=== PATIENT | female | born 1985 ===

== ENCOUNTER 2017-07-14 07:33 | Inpatient (IN) | payer BC ==
[2017-07-14 08:59] LABS: RBC URINE 2 /hpf (0-3); URINE BACTERIA OCC (<OCC); URINE BILIRUBIN NEGATIVE (NEGATIVE); URINE BLOOD NEGATIVE (NEGATIVE); URINE COLOR YELLOW (YELLOW); URINE GLUCOSE (UA) NEG (Normal); URINE KETONE 20 mg/dL (NEGATIVE); URINE LEUKOCYTE ESTERASE LARGE Leu/uL (Negative); URINE PROTEIN NEGATIVE (NEGATIVE); URINE UROBILINOGEN 0.2-1.0 mg/dL (0.2-1.0); WBC URINE 4 /hpf (0-5)
[2017-07-14] MEDS ORDERED: Lactated Ringer's 1,000 ML IV SCH (09:30)
[2017-07-14 10:23] LABS: HEMATOCRIT 27.3 % (34.0-47.0); MEAN CELL VOLUME 93.2 fl (81.0-99.0); MEAN CORPUSCULAR HGB CONC 35.5 g/dL (33.0-37.0)
[2017-07-14 10:34] LABS: ALB/GLOB RATIO 1.1 (1.0-2.1); ALKALINE PHOSPHATASE 100 U/L (38-126); ALT/SGPT 28 U/L (9-52); AST/SGOT 29 U/L (14-36); BILIRUBIN,TOTAL 0.7 mg/dl (0.2-1.3); BLOOD UREA NITROGEN 3 mg/dl (7-17); CALCIUM 8.4 mg/dL (8.4-10.2); CARBON DIOXIDE 22 mmol/L (22-30); CHLORIDE 106 mmol/L (98-107); GFR AFRICAN-AMERICAN > 60; GLUCOSE,RANDOM 74 mg/dL (65-105); SODIUM 136 mmol/l (132-148); TOTAL PROTEIN 5.4 G/DL (6.3-8.2)
[2017-07-14 11:15] LABS: POTASSIUM 2.5 MMOL/L (3.6-5.0)
[2017-07-14] MEDS ORDERED: Potassium Chloride 20 mEq ER Tab PO ONE (11:37)
--- NOTE | 2017-07-14 12:07 | OBHP ---
Datetime: 07/14/2017 08:20 IP Adm Impression: , intrauterine IP Admit Plan: Observation/Evaluation Admit Comment, IP Provider: OB Hospitalist Addendum: Pt seen and examined by me. Agree w/ a above. 35 yo G1 at 38+1 wks w/ c/o mucus fluid since 1 am, also c/o pelvic pain w/ movment. Pt denies ctxns, VB and reports FM. Spec: yellow mucus and water, positive nitrazine and positive fern. VE: /-3 at 0415. Pt admitted w/ PROM. (ES) Pelvic Type - PN: Adequate Extremities - PN: Abnormal Abdomen - PN: Normal Lungs - PN: Normal Neurologic - PN: Normal HEENT - PN: Normal General - PN: Normal FHR - Baseline A Provider: 140 Membranes, Provider: Intact Comments, ACOG Physical Exam: Back: mild left CVA tenderness nonpitting tr LE edema Sterile speculum exam: Cervix is closed and thick. Gestation - Est Wks by US: 30.1 EGA AdmitDate IP: 30.1 Vital Signs Provider: Reviewed Vital Signs Provider Details: [id number] IP Chief Complaint: Illness NICHD Variability Prov Fetus A: Moderate 6-25bpm NICHD Accel Fetus A IP Provider: 10X10 FHR Category Provider Fetus A: Category I NICHD Decel Fetus A IP Provider: None Dilatation, Provider: 0 Effacement, Provider: 0 Station, Provider: -3 Genitourinary Exam: Normal
--- NOTE | 2017-07-14 12:37 | OBHP ---
Datetime: 07/14/2017 12:22 IP Adm Impression: , intrauterine IP Admit Plan: Admit to unit Admit Comment, IP Provider: at 30+ wks IUP, twin gestation ( MARLENE 09/21/17 by first trim US) p resenting with bilateral lower abdominal pressure, onset last night. Assoc. w/ urinary frequency, fe vers alleviated by (101 F tmax over past 24hrs) and some lower back pain. No ctx, LOF, VB. + FM repor virginie. Recent resp illness, s/p 5 day course of azithromycin, finished 2 days ago. Patient also uses hayley tolin PRN for h/o intermittent asthma. Last intercourse 1 week ago. PNC: [facility], Dr Garcia, chart to be faxed over by office OBGYN hx: CS at term 2010 Meds: PNV, ventolin PMH: asthma PSH: CS, breast augmentation O: cat 1 tracing A/P UTI, possible Pyelo, poss PTL - FFN -cbc, cmp, ua - LR x 1L - Rocephin 1 gm update: FFN positive, c.w abx, admit to unit, consult MFM, patient to be transferred to [facility] d/w Dr. Ethan Valles MD OB age addendum: Patient seen and examined by me agree with above. Because B with above assessment and plan [facility] conditions clarification's. Patient complains of fever with onset at about 9 PM Tmax of 101 101. Patient took liquid Tylenol f or alleviation of fever and she said she had stopped after than 9 PM dose she was awakened at 11:00 w ith the temperature 100 she is. She subsequently took more Tylenol and was later wake awakened again at 3 in the morning with the temperature 100 again with with which she took Tylenol. She presents tod ay this morning for continued complaints of fever. She complains of lower back cramps and bilateral a dnexal cramping. She denies labor pain spontaneous rupture of membranes vaginal bleeding or decreased movement. She complains of increased urinary frequency associated with urgency and voiding onl y small amounts of urine. She denies colitis in the past 1 month. She also complains of not emesis 3 this morning with just clear fluid coming out. OB history: delivery at 39 weeks with no history of threatened labor; chemical pr egnancy. Past medical history: Asthma for which she takes on Ventolin when necessary maybe once a week. Social history denies tobacco alcohol or drug use. No known drug allergies Medication: vitamins ImpressioP: 1. UTI-UA and urine culture 2. Evaluate for threatened labor-toco readjusted and shows the presence of uterine irritab ility and contractions proximal proximally every 6 minuteswill send FFN. Addendum to: UA-large leukocytes positive nitrite FFN positive Patient discussed with Dr. Cortez Patient discussed with Dr. Camarillo. He recommends transfer to [facility] for further observatio n and management. Discussed with patient plan for transfer to [facility] and management under Dr. Camarillo. IP Hx Assessment: The History has been Reviewed and is Current EGA AdmitDate IP: 30.1 IP Chief Complaint: Illness
--- NOTE | 2017-07-14 12:39 | OBADHP ---
Datetime: 07/14/2017 12:22 IP Hx Assessment: The History has been Reviewed and is Current IP Chief Complaint: Illness EGA AdmitDate IP: 30.1 IP Adm Impression: , intrauterine IP Admit Plan: Admit to unit Datetime: 07/14/2017 08:20 Admit Comment, IP Provider: at 30+ wks IUP, twin gestation ( MARLENE 09/21/17 by first trim US) p resenting with bilateral lower abdominal pressure, onset last night. Assoc. w/ urinary frequency, fe vers alleviated by (101 F tmax over past 24hrs) and some lower back pain. No ctx, LOF, VB. + FM repor virginie. Recent resp illness, s/p 5 day course of azithromycin, finished 2 days ago. Patient also uses hayley tolin PRN for h/o intermittent asthma. Last intercourse 1 week ago. PNC: [facility], Dr Garcia, chart to be faxed over by office OBGYN hx: CS at term 2010 Meds: PNV, ventolin PMH: asthma PSH: CS, breast augmentation O: cat 1 tracing back: left CVA tenderness cervix: closed, thick A/P UTI, possible Pyelo, poss PTL - FFN -cbc, cmp, ua - LR x 1L - Rocephin 1 gm update: FFN positive, c.w abx, admit to unit, consult MFM, patient to be transferred to [facility] d/w Dr. Ethan Valles MD obh addendum: Patient seen and examined by me. Agree with above assessment and plan. Pelvic Type - PN: Adequate Extremities - PN: Abnormal Abdomen - PN: Normal Lungs - PN: Normal Neurologic - PN: Normal HEENT - PN: Normal General - PN: Normal FHR - Baseline A Provider: 140 Membranes, Provider: Intact Comments, ACOG Physical Exam: Back: mild left CVA tenderness nonpitting tr LE edema Sterile speculum exam: Cervix is closed and thick. Gestation - Est Wks by US: 30.1 Vital Signs Provider: Reviewed Vital Signs Provider Details: [id number] NICHD Variability Prov Fetus A: Moderate 6-25bpm NICHD Accel Fetus A IP Provider: 10X10 FHR Category Provider Fetus A: Category I NICHD Decel Fetus A IP Provider: None Dilatation, Provider: 0 Effacement, Provider: 0 Station, Provider: -3 Genitourinary Exam: Normal
[2017-07-14 12:51] VITALS: RESP 18
[2017-07-14] MEDS ORDERED: Potassium Chloride 40 MEQ in Sodium Chloride 0.45% 1,000 ML IV SCH (13:00)
[2017-07-14 17:37] VITALS: BP 111/50; PULSE 115; TEMP 99; O2SAT 100
== END 2017-07-14 13:15 | disposition short-term general hospital (02) | DRG 778 ==
LOC: H.EROB2 07:33 → H.EROB 07:33 → H.EROB2 11:33 → H.L&D 11:33
PROVIDERS: ADMIT Obstetrics & Gynecology; ATTEND Obstetrics & Gynecology
PROC: 4A1HXCZ Monitoring of Products of Conception, Cardiac Rate, External Approach (ICD-10-PCS; principal; 2017-07-14)
DX: O60.03 Preterm labor without delivery, third trimester (principal); O23.43 Unspecified infection of urinary tract in pregnancy, third trimester; O30.003 Twin pregnancy, unspecified number of placenta and unspecified number of amniotic sacs, third trimester; Z3A.30 30 weeks gestation of pregnancy; O99.52 Diseases of the respiratory system complicating childbirth; J45.20 Mild intermittent asthma, uncomplicated